=== PATIENT | male | born 1960 | race Caucasian/White ===

== ENCOUNTER 2018-09-27 06:19 | Emergency (ER) | payer OTHER ==
[~2018-09-27] VITALS: Ht 182.9 cm; Wt 134.4 kg
--- NOTE | 2018-09-27 06:37 | NUR ---
PT PRESENTED WITH C/O N/V/D, LOWER ABD PAIN SINCE 0000 THIS MORNING. MONITORS APPLIED, SIDERAILS UP X2, CALL LIGHT WITHIN REACH, FAMILY AT BEDSIDE. AWAITING ERP FOR EVAL AND ORDERS
[2018-09-27] MEDS ORDERED: AMLO10TA8 PO (06:43)
[2018-09-27] MEDS ORDERED: METF500T17 PO (06:43)
[2018-09-27] MEDS ORDERED: ATOR40TA78 PO (06:43)
[2018-09-27] MEDS ORDERED: SODIUM CHLORIDE FLUSH 10ML SYR IVF ONE (07:00)
[2018-09-27] MEDS ORDERED: FAMOTIDINE 20 MG/2 ML IVP ONE (07:00)
[2018-09-27] MEDS ORDERED: ONDANSETRON 2MG/ML, 2ML IVPush ONE (07:00)
[2018-09-27] MEDS ORDERED: MORPHINE SULFATE 4 MG/ML, 1ML IVPush PRN (07:00)
[2018-09-27] MEDS ORDERED: FAMOTIDINE 20 MG/2 ML ONE (07:51)
[2018-09-27] MEDS ORDERED: ONDANSETRON 2MG/ML, 2ML ONE ×2 (07:51→07:55)
[2018-09-27 07:57] LABS: BASOPHILS % (AUTO) 0 % (0-1); EOSINOPHILS # (AUTO) 0.04 x10^3/uL (0-0.4); EOSINOPHILS % (AUTO) 1 % (1-7); LYMPHOCYTES % (AUTO) 3 % (22-44); MD NO; MEAN CORPUSCULAR HEMOGLOBIN 30.5 pg (27.5-34.5); MEAN CORPUSCULAR HGB CONC 33.3 g/dL (33.2-36.2); MEAN CORPUSCULAR VOLUME 91.7 fL (81-97); MEAN PLATELET VOLUME 9.2 fL (7.4-10.4); MONOCYTES # (AUTO) 0.37 x10^3/uL (0.2-0.8); MONOCYTES % (AUTO) 5 % (2-9); NEUTROPHILS # (AUTO) 6.97 x10^3/uL (1.8-6.8); NEUTROPHILS % (AUTO) 92 % (42-75); PLATELET COUNT 169 x10^3/uL (130-400); RED BLOOD COUNT 6.01 x10^6/uL (4.38-5.82)
[2018-09-27 08:17] LABS: ALANINE AMINOTRANSFERASE 36 U/L (12-78); ANION GAP 8 mmol/L (5-15); CALCIUM 10.2 mg/dL (8.5-10.1); CHLORIDE 108 mmol/L (98-107); CREATININE 1.26 mg/dL (0.7-1.3)
[2018-09-27 08:19] LABS: ALKALINE PHOSPHATASE 135 U/L (45-117); TOTAL PROTEIN 8.4 g/dL (6.4-8.2)
--- NOTE | 2018-09-27 08:24 | NUR ---
pt refuses morphine at this time. provider made aware of this
[2018-09-27 09:05] VITALS: BP 124/77
== END 2018-09-27 09:10 | disposition home or self-care (01) ==
LOC: ED 07:03
DX: A08.4 Viral intestinal infection, unspecified (principal); I10 Essential (primary) hypertension; E78.00 Pure hypercholesterolemia, unspecified
CPT/HCPCS: 36415; 76700; 80053; 83690; 85025; 96374; 96375; 99284; J2405; J3490

== ENCOUNTER 2019-02-16 19:59 | Emergency (ER) | payer OTHER ==
[~2019-02-16] VITALS: Ht 182.9 cm; Wt 134.5 kg
[~2019-02-16 19:59] MED LIST: AMLO10TA8 PO; ATOR40TA78 PO; METF500T17 PO
--- NOTE | 2019-02-16 20:22 | NUR ---
Pt presents to ed c/o hematuria since this am and L flank painx2 hours. States hx of kidney stones in past. Last one 2 years ago. Denies any painful urination. Denies further abd pain. Unknown fevers at home. Afebrile in ed. Ua collected and sent to lab. Pa at bedside for assessment.
[2019-02-16 20:40] LABS: MICROSCOPIC INDICATED
[2019-02-16 20:44] LABS: CULTURE INDICATED? YES
[2019-02-16 21:07] LABS: BASOPHILS # (AUTO) 0.05 x10^3/uL (0-0.1); BASOPHILS % (AUTO) 1 % (0-1); EOSINOPHILS # (AUTO) 0.15 x10^3/uL (0-0.4); EOSINOPHILS % (AUTO) 3 % (1-7); LYMPHOCYTES # (AUTO) 1.41 x10^3/uL (1-3.4); LYMPHOCYTES % (AUTO) 26 % (22-44); MD NO; MEAN CORPUSCULAR HEMOGLOBIN 30.9 pg (27.5-34.5); MEAN CORPUSCULAR HGB CONC 33.9 g/dL (33.2-36.2); MEAN CORPUSCULAR VOLUME 91.3 fL (81-97); MEAN PLATELET VOLUME 9.1 fL (7.4-10.4); MONOCYTES # (AUTO) 0.63 x10^3/uL (0.2-0.8); MONOCYTES % (AUTO) 12 % (2-9); NEUTROPHILS # (AUTO) 3.22 x10^3/uL (1.8-6.8); NEUTROPHILS % (AUTO) 59 % (42-75); PLATELET COUNT 185 x10^3/uL (130-400); RED BLOOD COUNT 5.03 x10^6/uL (4.38-5.82); RED CELL DISTRIBUTION WIDTH 14.1 % (9.4-14.8)
[2019-02-16 21:18] LABS: ALANINE AMINOTRANSFERASE 40 U/L (12-78); ALBUMIN 3.9 g/dL (3.4-5.0); ANION GAP 7 mmol/L (5-15); CALCIUM 9.4 mg/dL (8.5-10.1); CHLORIDE 107 mmol/L (98-107); CREATININE 1.14 mg/dL (0.7-1.3)
[2019-02-16 21:21] LABS: ALKALINE PHOSPHATASE 127 U/L (45-117); BILIRUBIN,TOTAL 0.6 mg/dL (0.2-1.0); TOTAL PROTEIN 7.5 g/dL (6.4-8.2)
--- NOTE | 2019-02-16 21:28 | NUR ---
Back from ct.
[2019-02-16 21:29] VITALS: BP 148/70
== END 2019-02-16 22:10 | disposition home or self-care (01) ==
LOC: ED 22:04
DX: N20.0 Calculus of kidney (principal)
CPT/HCPCS: 36415; 74176; 80053; 81001; 85025; 87086; 99284

== ENCOUNTER 2020-06-27 16:34 | Emergency (ER) | payer OTHER ==
[~2020-06-27] VITALS: Ht 182.9 cm; Wt 129.6 kg
--- NOTE | 2020-06-27 17:23 | NUR ---
PT CAME IN CO OF RIGHT SIDE FLANK PAIN X 2 DAYS. PT HAS HX OF KIDNEY STONES AND OVER THE PAST 2 MONTHS HAS HAD FREQUENT UTIS FOR WHICH HE IS TAKING BACTRIM. UA PROVIDED. LABS SENT. MD BEDSIDE FOR ASSESSMENT.
[2020-06-27 17:29] LABS: BASOPHILS % (AUTO) 2 % (0-1); EOSINOPHILS % (AUTO) 4 % (1-7); LYMPHOCYTES % (AUTO) 25 % (22-44); MD NO; MEAN CORPUSCULAR HEMOGLOBIN 30.1 pg (27.5-34.5); MEAN CORPUSCULAR HGB CONC 33.4 g/dL (33.2-36.2); MEAN PLATELET VOLUME 8.5 fL (7.4-10.4); MONOCYTES % (AUTO) 13 % (2-9); NEUTROPHILS % (AUTO) 56 % (42-75); PLATELET COUNT 223 x10^3/uL (130-400); RED BLOOD COUNT 4.86 x10^6/uL (4.38-5.82)
[2020-06-27 17:34] LABS: ALBUMIN 3.9 g/dL (3.4-5.0); ANION GAP 7 mmol/L (5-15); CALCIUM 9.8 mg/dL (8.5-10.1); CHLORIDE 108 mmol/L (98-107)
[2020-06-27 17:36] LABS: MICROSCOPIC AUTO
[2020-06-27 17:37] LABS: ALANINE AMINOTRANSFERASE 56 U/L (12-78); ALKALINE PHOSPHATASE 116 U/L (45-117); BILIRUBIN,TOTAL 0.6 mg/dL (0.2-1.0); CREATININE 1.16 mg/dL (0.7-1.3); TOTAL PROTEIN 7.9 g/dL (6.4-8.2)
--- NOTE | 2020-06-27 18:06 | NUR ---
PT RESTING IN [facility]. WATCHING TV. NAD. VSS. AWAITING CT RESULTS
--- NOTE | 2020-06-27 18:47 | NUR ---
BEDSIDE REPORT FROM MARTY BURKETT. PT SITTING IN BED, BOBBI. ERP BACK AT BEDSIDE TO UPDATE PT ON POC.
[2020-06-27 18:49] VITALS: BP 118/56
== END 2020-06-27 19:04 | disposition home or self-care (01) ==
LOC: ED 18:20
DX: M54.5 Low back pain (principal); I10 Essential (primary) hypertension; E11.9 Type 2 diabetes mellitus without complications; E78.00 Pure hypercholesterolemia, unspecified
CPT/HCPCS: 36415; 74176; 80053; 81001; 85025; 87086; 99284

== ENCOUNTER 2021-05-02 08:21 | Outpatient (CLI) | payer OTHER ==
[~2021-05-02 08:21] MED LIST changes: +AMLO-211 PO; -AMLO10TA8 PO
[2021-05-02] MEDS ORDERED: PIOG15TA69 PO (08:48)
[2021-05-02] MEDS ORDERED: AMLO5TAB4 PO (08:48)
[2021-05-02] MEDS ORDERED: TAMS-11 PO (08:48)
[2021-05-02] MEDS ORDERED: Vitamin D (08:48)
[2021-05-02] MEDS ORDERED: SULF-23 PO (08:48)
[2021-05-02 09:08] LABS: BASOPHILS % (AUTO) 1 % (0-1); EOSINOPHILS % (AUTO) 3 % (1-7); LYMPHOCYTES % (AUTO) 24 % (22-44); MEAN CORPUSCULAR HEMOGLOBIN 30.5 pg (27.5-34.5); MEAN CORPUSCULAR HGB CONC 33.6 g/dL (33.2-36.2); MEAN PLATELET VOLUME 8.6 fL (7.4-10.4); MONOCYTES % (AUTO) 11 % (2-9); NEUTROPHILS % (AUTO) 61 % (42-75); PLATELET COUNT 197 x10^3/uL (130-400); RED BLOOD COUNT 5.24 x10^6/uL (4.38-5.82); RED CELL DISTRIBUTION WIDTH 14.8 % (9.4-14.8)
[2021-05-02 09:12] LABS: MICROSCOPIC AUTO
[2021-05-02 09:19] LABS: ALBUMIN 3.8 g/dL (3.4-5.0); ANION GAP 6 mmol/L (5-15); CALCIUM 9.6 mg/dL (8.5-10.1); CHLORIDE 106 mmol/L (98-107)
[2021-05-02 09:20] LABS: INTERNATIONAL NORMALIZED RATIO 0.93 (0.93-1.1)
[2021-05-02 09:23] LABS: ALANINE AMINOTRANSFERASE 31 U/L (12-78); ALKALINE PHOSPHATASE 137 U/L (45-117); BILIRUBIN,TOTAL 0.6 mg/dL (0.2-1.0); CREATININE 0.91 mg/dL (0.7-1.3); TOTAL PROTEIN 8.1 g/dL (6.4-8.2)
== END 2021-05-02 23:59 | disposition home or self-care (01) ==
LOC: STAR 08:21
PROVIDERS: ATTEND Urology
DX: Z01.818 Encounter for other preprocedural examination (principal); N20.0 Calculus of kidney
CPT/HCPCS: 36415; 80053; 81001; 85025; 85610; 85730; 87086; 93005

== ENCOUNTER 2021-05-08 09:15 | Day surgery (SDC) | payer OTHER ==
[~2021-05-08] VITALS: Ht 182.9 cm; Wt 129.7 kg
[~2021-05-08 09:15] MED LIST changes: +AMLO5TAB4 PO; +FENTANYL PF 250 MCG/5ML ONE; +MIDAZOLAM 1 MG/ML, 2ML ONE; +PIOG15TA69 PO; +SULF-23 PO; +TAMS-11 PO; +Vitamin D
[2021-05-08] MEDS ORDERED: OMNIPAQUE 350 MG/ML, 50 ML BOTTLE ONE (09:50)
[2021-05-08 09:53] VITALS: BP 136/76
[2021-05-08] MEDS ORDERED: LACTATED RINGERS 1,000 ML IV SCH (10:00)
[2021-05-08] MEDS ORDERED: CHLORHEXIDINE 15 ML UDC PO ONE (10:00)
[2021-05-08] MEDS ORDERED: CHLORHEXIDINE 15 ML UDC ONE (10:00)
[2021-05-08] MEDS ORDERED: ONDANSETRON 2MG/ML, 2ML ONE (11:10)
[2021-05-08] MEDS ORDERED: DEXAMETHASONE 4 MG/ML, 1ML ONE (11:10)
[2021-05-08] MEDS ORDERED: PROPOFOL 10 MG/ML, 20ML ONE (11:10)
[2021-05-08] MEDS ORDERED: CEFAZOLIN 1,000 MG ONE (11:10)
[2021-05-08] MEDS ORDERED: SUCCINYLCHOLINE 20 MG/ML, 10ML ONE (11:10)
[2021-05-08] MEDS ORDERED: SODIUM CHLORIDE 0.9% PF 10ML ONE (11:12)
[2021-05-08] MEDS ORDERED: LIDOCAINE-MPF 2% ,5ML ONE (11:16)
[2021-05-08] MEDS ORDERED: GLYCOPYRROLATE 0.2MG/1ML, 5ML ONE (11:22)
[2021-05-08] MEDS ORDERED: PHENAZOPYRIDINE 200 MG TABLET ONE (12:29)
[2021-05-08] MEDS ORDERED: PHENAZOPYRIDINE 200 MG TABLET PO ONE (12:30)
[2021-05-08] MEDS ORDERED: OXYcodone/APAP 5/325MG TABLET ONE (13:38)
[2021-05-08] MEDS ORDERED: HYDROcodone/APAP 5/325 TABLET ONE (13:48)
[2021-05-08] MEDS ORDERED: OXYcodone/APAP 5/325MG TABLET PO ONE (14:00)
[2021-05-08] MEDS ORDERED: HYDROcodone/APAP 5/325 TABLET PO ONE (14:00)
== END 2021-05-08 15:15 | disposition home or self-care (01) ==
LOC: OUT 09:15
PROVIDERS: ATTEND Urology
DX: N20.0 Calculus of kidney (principal); N40.1 Benign prostatic hyperplasia with lower urinary tract symptoms; E11.9 Type 2 diabetes mellitus without complications; E78.5 Hyperlipidemia, unspecified; G47.33 Obstructive sleep apnea (adult) (pediatric); Z88.8 Allergy status to other drugs, medicaments and biological substances; Z91.018 Allergy to other foods; Z79.899 Other long term (current) drug therapy; Z98.890 Other specified postprocedural states; Z72.89 Other problems related to lifestyle
CPT/HCPCS: 52353; 82360; 82962; 88300; C1769; J0330; J0690; J1100; J2250; J2405; J2704; J3010; J7120; Q9967; 76000

== ENCOUNTER 2021-05-12 15:45 | Emergency (ER) | payer OTHER ==
[~2021-05-12] VITALS: Ht 182.9 cm; Wt 129.1 kg
[~2021-05-12 15:45] MED LIST changes: -FENTANYL PF 250 MCG/5ML ONE; -MIDAZOLAM 1 MG/ML, 2ML ONE
[2021-05-12 16:36] LABS: BASOPHILS % (AUTO) 1 % (0-1); EOSINOPHILS % (AUTO) 3 % (1-7); LYMPHOCYTES % (AUTO) 17 % (22-44); MEAN CORPUSCULAR HEMOGLOBIN 30.3 pg (27.5-34.5); MEAN CORPUSCULAR HGB CONC 33.9 g/dL (33.2-36.2); MEAN PLATELET VOLUME 8.2 fL (7.4-10.4); MONOCYTES % (AUTO) 20 % (2-9); NEUTROPHILS % (AUTO) 59 % (42-75); PLATELET COUNT 154 x10^3/uL (130-400); RED BLOOD COUNT 5.26 x10^6/uL (4.38-5.82); RED CELL DISTRIBUTION WIDTH 14.8 % (9.4-14.8)
[2021-05-12 16:48] LABS: ALBUMIN 2.9 g/dL (3.4-5.0); ANION GAP 6 mmol/L (5-15); CALCIUM 8.8 mg/dL (8.5-10.1); CHLORIDE 103 mmol/L (98-107)
[2021-05-12 16:52] LABS: ALANINE AMINOTRANSFERASE 207 U/L (12-78); ALKALINE PHOSPHATASE 189 U/L (45-117); BILIRUBIN,TOTAL 0.9 mg/dL (0.2-1.0); CREATININE 1.11 mg/dL (0.7-1.3); TOTAL PROTEIN 8.5 g/dL (6.4-8.2)
--- NOTE | 2021-05-12 17:36 | NUR ---
UA sent from Triage
[2021-05-12 18:01] LABS: MICROSCOPIC AUTO
--- NOTE | 2021-05-12 18:40 | NUR ---
PATIENT AMBULATED WITH STEADY GAIT TO ROOM 25
--- NOTE | 2021-05-12 18:45 | NUR ---
AT BEDSIDE, CALL LIGHT IN PLACE, PATIENT DECLINES BLANKET AT THIS TIME
--- NOTE | 2021-05-12 19:52 | NUR ---
ERP AT BEDSIDE.
[2021-05-12] MEDS ORDERED: SULFAMETH./TRIMETHOPRIM DS 800MG/160MG TABLET ONE (20:30)
[2021-05-12 20:34] VITALS: BP 137/76
[2021-05-12] MEDS ORDERED: SULFAMETH./TRIMETHOPRIM DS 800MG/160MG TABLET PO ONE (21:00)
== END 2021-05-12 20:37 | disposition home or self-care (01) ==
LOC: ED 18:46
DX: N30.90 Cystitis, unspecified without hematuria (principal); E11.9 Type 2 diabetes mellitus without complications; E78.00 Pure hypercholesterolemia, unspecified; I10 Essential (primary) hypertension
CPT/HCPCS: 36415; 76770; 80053; 81001; 83605; 85025; 87086; 99284